=== PATIENT | male | born 1965 | race African-American/Black ===

== ENCOUNTER 2022-12-07 12:51 | Emergency (ER) | payer OTHER ==
[~2022-12-07] VITALS: Ht 182.9 cm; Wt 77.3 kg
[2022-12-07 13:02] VITALS: BP 152/87; PULSE 100; RESP 18; TEMP 98.2
== END 2022-12-07 14:22 | disposition home or self-care (01) ==
LOC: EMS 12:58
DX: S62.511A Displaced fracture of proximal phalanx of right thumb, initial encounter for closed fracture (principal); Y08.89XA Assault by other specified means, initial encounter; Y93.89 Activity, other specified; Y92.89 Other specified places as the place of occurrence of the external cause; Y99.8 Other external cause status
CPT/HCPCS: 99283